=== PATIENT | female | born 1975 | race Caucasian/White ===

== ENCOUNTER → 2024-06-18 14:20 | Outpatient (REF) | payer BC, SELFPAY | LOC: HWRAD 14:20 | PROVIDERS: ATTENDING PHYSICIAN Nurse Practitioner Family; FAMILY PHYSICIAN Nurse Practitioner Family | DX: R10.9 Unspecified abdominal pain (principal) | CPT/HCPCS: 76700 ==

== ENCOUNTER → 2024-10-18 09:07 | Outpatient (REF) | payer BC, SELFPAY | LOC: HWWDC 09:07 | PROVIDERS: ATTENDING PHYSICIAN Nurse Practitioner Family; FAMILY PHYSICIAN Internal Medicine | DX: Z12.31 Encounter for screening mammogram for malignant neoplasm of breast (principal) | CPT/HCPCS: 77063; 77067 ==

== ENCOUNTER 2025-01-04 16:26 | Emergency (ER) | payer BC, SELFPAY ==
[2025-01-04 16:30] VITALS: BP 146/91
--- NOTE | 2025-01-04 16:49 | EDRN ---
OS
OD 20
OU
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
[2025-01-04] MEDS: GENOPTIC 0.3% EYE DROPS 1 DROP OPHTH (19:16)
== END 2025-01-04 19:25 | disposition home or self-care (01) ==
LOC: EMR 16:26
PROVIDERS: EMERGENCY PHYSICIAN Student in an Organized Health Care Education/Training Program; FAMILY PHYSICIAN Nurse Practitioner Family
DX: H53.8 Other visual disturbances (principal); Z77.098 Contact with and (suspected) exposure to other hazardous, chiefly nonmedicinal, chemicals
CPT/HCPCS: 99282

== ENCOUNTER 2025-04-07 11:58 | Emergency (ER) | payer BC, SELFPAY ==
[2025-04-07 12:05] VITALS: BP 139/86
[2025-04-07] MEDS: KEFLEX 500 MG PO (15:00)
[2025-04-07] MEDS: ADACEL 0.5 ML IM (15:04)
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
== END 2025-04-07 15:35 | disposition home or self-care (01) ==
LOC: EMR 11:58
PROVIDERS: EMERGENCY PHYSICIAN Emergency Medicine; FAMILY PHYSICIAN Nurse Practitioner Family
DX: S91.132A Puncture wound without foreign body of left great toe without damage to nail, initial encounter (principal); W26.8XXA Contact with other sharp object(s), not elsewhere classified, initial encounter; Z23 Encounter for immunization
CPT/HCPCS: 90471; 99283; 73660; 90715